=== PATIENT | female | born 2005 | race Caucasian/White ===

== ENCOUNTER 2024-04-05 19:12 | Emergency (ER) | payer OTHER, SELFPAY ==
[2024-04-05 19:13] VITALS: BP 169/100; PULSE 84; RESP 16; TEMP 36.7; O2SAT 100; BMI 23.0
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
[2024-04-05] MEDS: morphine 10 MG/ML Syringe 8 MG IM (20:13)
[2024-04-05] MEDS: Ondansetron ODT 4 MG Tablet PO (20:13)
[2024-04-05 20:16] VITALS: BP 138/40; PULSE 81; RESP 16; TEMP 36.7; O2SAT 100
== END 2024-04-05 20:17 | disposition home or self-care (01) ==
LOC: ED 20:08
PROVIDERS: Emergency Provider Emergency Medicine; Visit Provider Emergency Medicine
DX: S32.058A Other fracture of fifth lumbar vertebra, initial encounter for closed fracture (principal); V03.90XA Pedestrian on foot injured in collision with car, pick-up truck or van, unspecified whether traffic or nontraffic accident, initial encounter
CPT/HCPCS: 99282